=== PATIENT | male | born 1970 | race Caucasian/White ===

== ENCOUNTER 2016-12-17 03:48 | Emergency (ER) | payer MEDICAID ==
[~2016-12-17] VITALS: Ht 157.5 cm; Wt 72.6 kg
[~2016-12-17 03:48] MED LIST: IBUP-2213 PO; INSU100S45 SUBQ; LANTUS SUBQ; METF500T PO; METH500T14 PO; RANI-287 PO
[2016-12-17 03:51] VITALS: BP 138/85
--- NOTE | 2016-12-17 04:08 | NUR ---
PATIENT BEING EVALUATED BY DR. TEMPLE.
--- NOTE | 2016-12-17 04:08 | NUR ---
PATIENT AMBULATED TO ER BED7.
[2016-12-17] MEDS ORDERED: KETOROLAC 60 MG/2 ML VIAL IM ONE (04:10)
--- NOTE | 2016-12-17 04:20 | NUR ---
PT C/O LOW BACK PAIN, RADIATING TO HIS LEFT GROIN AND LEG, FOR 5 DAYS NOW
[2016-12-17 05:04] VITALS: BP 129/81
--- NOTE | 2016-12-17 05:05 | NUR ---
Patient discharged with v/s stable. Written and verbal after care instructions given and explained. Patient alert, oriented and verbalized understanding of instructions. Ambulatory with steady gait. All questions addressed prior to discharge. ID band removed. Patient advised to follow up with PMD. Rx of MOTRIN 800MG PO given. Patient educated on indication of medication including possible reaction and side effects. Opportunity to ask questions provided and answered.
== END 2016-12-17 05:05 | disposition home or self-care (01) ==
LOC: MED 03:48
DX: M54.42 Lumbago with sciatica, left side (principal); M54.41 Lumbago with sciatica, right side; R03.0 Elevated blood-pressure reading, without diagnosis of hypertension; E11.9 Type 2 diabetes mellitus without complications; Z79.4 Long term (current) use of insulin
CPT/HCPCS: 96372; 99283; J1885

== ENCOUNTER 2017-01-03 10:11 | Emergency (ER) | payer MEDICAID ==
[~2017-01-03] VITALS: Ht 154.9 cm; Wt 70.0 kg
[2017-01-03 10:16] VITALS: BP 132/85
[2017-01-03 11:04] VITALS: BP 128/82
== END 2017-01-03 11:09 | disposition home or self-care (01) ==
LOC: MED 10:11
DX: B34.9 Viral infection, unspecified (principal); E11.65 Type 2 diabetes mellitus with hyperglycemia; Z71.6 Tobacco abuse counseling
CPT/HCPCS: 82948; 99283

== ENCOUNTER 2017-01-14 13:12 | Emergency (ER) | payer SELFPAY ==
[~2017-01-14 13:12] MED LIST changes: -METH500T14 PO; -RANI-287 PO
--- NOTE | 2017-01-14 14:11 | NUR ---
PATIENT LEFT WITHOUT BEING SEEN BY DR. OVERTON. NO FURTHER CARE PROVIDED FOR PATIENT.
== END 2017-01-14 14:11 | disposition left against medical advice (07) ==
LOC: MED 13:12
DX: R51 Headache (principal); Z53.21 Procedure and treatment not carried out due to patient leaving prior to being seen by health care provider

== ENCOUNTER 2017-06-12 16:05 | Emergency (ER) | payer MEDICAID ==
[~2017-06-12] VITALS: Ht 162.6 cm; Wt 69.4 kg
[2017-06-12 16:44] VITALS: BP 146/96
--- NOTE | 2017-06-12 17:03 | NUR ---
PATIENT BIB SELF WITH C/O LT PIOSTERIOR NECK RADIATING TO LEFT SHOUDLER PAIN AND LEFT ARM X 1 WK; PT DENIES ANY CP OR RECENT INJURY/FALLS; ALSO C/O LBP;PT WAS DX W/ UTI LAST WEEK;HX OF DM . DENIES N/V/D; SKIN IS PINK/WARM/DRY; AAOX4 WITH EVEN AND STEADY GAIT; LUNGS CLEAR BL; HR EVEN AND REGULAR; PT DENIES ANY FEVER, CP, SOB, OR COUGH AT THIS TIME; PATIENT STATES PAIN OF 8/10 AT THIS TIME;PATIENT POSITIONED FOR COMFORT; HOB ELEVATED; BEDRAILS UP X2; BED DOWN. ER MD MADE AWARE OF PT STATUS.
--- NOTE | 2017-06-12 17:27 | NUR ---
DR KNOTT AT BEDSIDE.
[2017-06-12] MEDS ORDERED: KETOROLAC 60 MG/2 ML VIAL IM ONE (17:30)
[2017-06-12 18:58] VITALS: BP 122/68
--- NOTE | 2017-06-12 18:58 | NUR ---
Patient discharged with v/s stable. Written and verbal after care instructions given and explained. Patient alert, oriented and verbalized understanding of instructions. Ambulatory with steady gait. All questions addressed prior to discharge. ID band removed. Patient advised to follow up with PMD. Rx of MOTRIN AND NORCO; given. Patient educated on indication of medication including possible reaction and side effects. Opportunity to ask questions provided and answered.
== END 2017-06-12 18:58 | disposition home or self-care (01) ==
LOC: MED 16:05
DX: R51 Headache (principal); M54.2 Cervicalgia; M25.512 Pain in left shoulder; E11.9 Type 2 diabetes mellitus without complications; F17.210 Nicotine dependence, cigarettes, uncomplicated; Z79.4 Long term (current) use of insulin; Z79.899 Other long term (current) drug therapy
CPT/HCPCS: 81002; 82948; 96372; 99283; J1885

== ENCOUNTER 2017-12-01 23:46 | Emergency (ER) | payer MEDICAID ==
[~2017-12-01] VITALS: Ht 157.5 cm; Wt 70.3 kg
[2017-12-01 23:48] VITALS: BP 150/100
--- NOTE | 2017-12-01 23:54 | NUR ---
TO BED # 2 AMBULATORY
--- NOTE | 2017-12-02 | NUR ---
47Y/M PT. PRESENST TO ED WITH C/O ABDOMINAL PAIN WITH N/V X 1 DAY. HX. DM. AAO X4, AMBULATORY WITH STEADY GAIT. RESPIRATIONS RA, EVEN AND UNLABORED. ABDOMEN SOFT, NON TENDER. ACTIVE BS X4, C/O UPPER ABDOMINAL PAIN 03/08. VSS, ER MADE AWARE OF PT. STATUS.
--- NOTE | 2017-12-02 00:12 | NUR ---
Dr. Cortez evaluating patient at bedside.
[2017-12-02] MEDS ORDERED: NACL 0.9% 1,000 ML IV SCH (00:17)
[2017-12-02] MEDS ORDERED: ONDANSETRON 4 MG/2 ML VIAL IVP ONE (00:20)
[2017-12-02] MEDS ORDERED: MORPHINE SULFATE 2 MG/ML SYR IVP ONE (00:20)
[2017-12-02] MEDS ORDERED: MORPHINE SULFATE 4 MG/ML SYR ONE (00:37)
[2017-12-02] MEDS ORDERED: INSULIN REGULAR, HUMAN 100 UNIT/ML VIAL SUBQ ONE (00:45)
--- NOTE | 2017-12-02 00:47 | NUR ---
PT TAKEN TO CT
[2017-12-02 01:01] LABS: BASOPHILS # (AUTO) 0.1 K/uL (0.00-0.22); BASOPHILS % (AUTO) 1.4 % (0.0-2.0); EOSINOPHILS # (AUTO) 0.1 K/uL (0-0.4); EOSINOPHILS % (AUTO) 1.7 % (0.0-4.0); HEMATOCRIT 45.2 % (36-52); HEMOGLOBIN 15.1 g/dL (12.0-18.0); LYMPHOCYTES # (AUTO) 2.6 K/uL (2.0-11.5); LYMPHOCYTES % (AUTO) 37.4 % (20.5-51.1); MEAN CORPUSCULAR HEMOGLOBIN 29 pg (27-31); MEAN CORPUSCULAR HGB CONC 33 g/dL (33-37); MEAN CORPUSCULAR VOLUME 85.9 fL (80-94); MONOCYTES # (AUTO) 0.6 K/uL (0.8-1.0); MONOCYTES % (AUTO) 7.9 % (1.7-9.3); NEUTROPHILS # (AUTO) 3.6 K/uL (1.8-7.7); NEUTROPHILS % (AUTO) 51.6 % (42.2-75.2); PLATELET COUNT (AUTO) 242 K/uL (140-450); RED BLOOD CELL COUNT(AUTO) 5.26 MIL/uL (4.20-6.10); RED CELL DISTRIBUTION WIDTH 12.7 % (11.6-13.7); WHITE BLOOD COUNT (AUTO) 7.1 K/uL (4.8-10.8)
[2017-12-02 01:04] LABS: APPEARANCE,URINE CLEAR (CLEAR); BILIRUBIN,URINE NEGATIVE (NEGATIVE); BLOOD, URINE NEGATIVE (NEGATIVE); COLOR,URINE YELLOW (YELLOW); LEUKOCYTE ESTERASE ,URINE NEGATIVE (NEGATIVE); NITRITE, URINE NEGATIVE (NEGATIVE); UGLUCOSE 3+ (NEGATIVE)
[2017-12-02 01:18] LABS: ANION GAP 12.9 (8-16); CARBON DIOXIDE 26.7 mmol/L (21-32); CREATININE 0.9 mg/dL (0.7-1.3); POTASSIUM 3.6 mmol/L (3.5-5.1)
[2017-12-02 01:23] LABS: RBC,URINE 0-5 (RARE) /HPF (0-5); WBC,URINE 0-5 (RARE) /HPF (0-5)
[2017-12-02 01:24] LABS: ALBUMIN 3.5 g/dL (3.4-5.0); TOTAL BILIRUBIN 0.4 mg/dL (0.0-1.0)
--- NOTE | 2017-12-02 02:00 | NUR ---
Patient appears to be resting comfortably in bed. Vital Signs within normal limits. Respirations even and unlabored.
[2017-12-02 03:05] VITALS: BP 122/73
--- NOTE | 2017-12-02 03:05 | NUR ---
Patient discharged with v/s stable. Written and verbal after care instructions given and explained. Patient alert, oriented and verbalized understanding of instructions. Ambulatory with steady gait. All questions addressed prior to discharge. ID band removed. Patient advised to follow up with PMD. Rx of Motrin, Tylenol, and Reglan given. Patient educated on indication of medication including possible reaction and side effects. Opportunity to ask questions provided and answered.
== END 2017-12-02 03:05 | disposition home or self-care (01) ==
LOC: MED 23:46
DX: R10.13 Epigastric pain (principal); R74.8 Abnormal levels of other serum enzymes; E11.9 Type 2 diabetes mellitus without complications; Z79.4 Long term (current) use of insulin; Z79.899 Other long term (current) drug therapy
CPT/HCPCS: 36415; 74176; 80053; 81001; 82948; 83690; 85025; 96361; 96374; 96375; 99285; J1815; J2270; J2405; J7030

== ENCOUNTER 2017-12-26 23:25 | Emergency (ER) | payer MEDICAID ==
[~2017-12-26] VITALS: Ht 157.5 cm; Wt 70.3 kg
[2017-12-26 23:28] VITALS: BP 150/85
--- NOTE | 2017-12-27 01:30 | NUR ---
PATIENT CALLED TO PUT ON BED NO REPLY, TO CALL BACK AGAIN.
--- NOTE | 2017-12-27 01:35 | NUR ---
CALLED FOR THE SECOND TIME NO RESPONSE.
--- NOTE | 2017-12-27 01:38 | NUR ---
CALLED FOR THR THIRD TIME NO RESPONSE. PATIENT LEFT WITHOUT BEING SEEN BY DR. ORDONEZ. NO FURTHER CARE PROVIDED FOR PATIENT.
== END 2017-12-27 01:38 | disposition left against medical advice (07) ==
LOC: MED 23:25
DX: M54.9 Dorsalgia, unspecified (principal); Z53.21 Procedure and treatment not carried out due to patient leaving prior to being seen by health care provider

== ENCOUNTER 2018-02-12 01:47 | Emergency (ER) | payer MEDICAID, OTHER ==
[~2018-02-12] VITALS: Ht 157.5 cm; Wt 68.0 kg
[2018-02-12 01:49] VITALS: BP 143/100
[2018-02-12] MEDS ORDERED: NACL 0.9% 2,000 ML IV ONE (02:15)
[2018-02-12] MEDS ORDERED: LORazepam 1 MG TAB PO ONE (02:15)
[2018-02-12 02:42] LABS: ALBUMIN 3.7 g/dL (3.4-5.0); ANION GAP 15.1 (8-16); CREATININE 1.1 mg/dL (0.7-1.3); POTASSIUM 4.1 mmol/L (3.5-5.1); TOTAL BILIRUBIN 0.4 mg/dL (0.0-1.0)
[2018-02-12 03:53] VITALS: BP 141/75
== END 2018-02-12 03:50 | disposition home or self-care (01) ==
LOC: MED 01:47
DX: E11.65 Type 2 diabetes mellitus with hyperglycemia (principal); Z79.4 Long term (current) use of insulin
CPT/HCPCS: 36415; 80053; 82948; 83690; 96360; 99284

== ENCOUNTER 2019-01-27 23:15 | Emergency (ER) | payer MEDICAID, OTHER ==
[~2019-01-27] VITALS: Ht 157.5 cm; Wt 72.6 kg
[2019-01-27 23:30] VITALS: BP 130/90
--- NOTE | 2019-01-27 23:33 | NUR ---
TO LOBBY A/W BED AMBULATORY
--- NOTE | 2019-01-28 01:09 | NUR ---
PATIENT LEFT WITHOUT BEING SEEN BY DR. ROBBINS. NO FURTHER CARE PROVIDED FOR PATIENT.
--- NOTE | 2019-01-28 01:09 | NUR ---
CALLED FOR PT IN THE LOBBY AND OUTSIDE, NO RESPONSE.
--- NOTE | 2019-01-28 01:19 | NUR ---
PT CALLED, NO ANSWER IN ER LOBBY.
== END 2019-01-28 01:09 | disposition left against medical advice (07) ==
LOC: MED 23:15
DX: M54.6 Pain in thoracic spine (principal); J02.9 Acute pharyngitis, unspecified; Z53.21 Procedure and treatment not carried out due to patient leaving prior to being seen by health care provider

== ENCOUNTER 2019-02-06 02:10 | Emergency (ER) | payer OTHER ==
[~2019-02-06] VITALS: Ht 157.5 cm; Wt 74.8 kg
[2019-02-06 02:18] VITALS: BP 151/109
--- NOTE | 2019-02-06 02:21 | NUR ---
PT AMBULATED TO BED 1. PROVIDING URINE.
--- NOTE | 2019-02-06 02:40 | NUR ---
PT BIB C/O COUGH X1 WEEK AND LLQ ABD PAIN THAT RADIATES TO TESTICLES X1 DAY. PT STATES DYSURIA AND 8/10 PAIN. +TENDERNESS W/ PALP; BOWEL SOUNDS ACTIVE THROUGH OUT. PT ACTING APPROPRIATLY, SPEAKING IN CLEAR AND COMPLETE SENTENCES. BREATHING EQUAL AND UNLABORED. PT IN BED, SAFETY PRECAUTIONS IN PLACE. PENDING KM ROACH. PMH: JEFFREY
[2019-02-06] MEDS ORDERED: NACL 0.9% 1,000 ML IV SCH (02:51)
[2019-02-06] MEDS ORDERED: KETOROLAC 30 MG/ML VIAL IVP ONE (02:55)
--- NOTE | 2019-02-06 03:00 | NUR ---
BLOOD DRAWN AT IV START BY RN AND SENT W/ RAY, TECH TO LAB --IV: L AC 20 G, W/ SALINE LOCK. FLUSHED WELL W/O RESISTANCE. NO REDNESS OR SWELLING TO SITE. TRANSPARENT DRESSING APPLIED.
[2019-02-06 03:05] LABS: APPEARANCE,URINE CLEAR (CLEAR); BILIRUBIN,URINE NEGATIVE (NEGATIVE); BLOOD, URINE NEGATIVE (NEGATIVE); COLOR,URINE YELLOW (YELLOW); LEUKOCYTE ESTERASE ,URINE NEGATIVE (NEGATIVE); NITRITE, URINE NEGATIVE (NEGATIVE); UGLUCOSE 2+ (NEGATIVE)
[2019-02-06 03:05] LABS: BASOPHILS # (AUTO) 0.1 K/uL (0.00-0.22); BASOPHILS % (AUTO) 0.9 % (0.0-2.0); EOSINOPHILS # (AUTO) 0.3 K/uL (0-0.4); EOSINOPHILS % (AUTO) 2.8 % (0.0-4.0); HEMATOCRIT 40.6 % (36-52); HEMOGLOBIN 13.8 g/dL (12.0-18.0); LYMPHOCYTES # (AUTO) 3.5 K/uL (2.0-11.5); LYMPHOCYTES % (AUTO) 37.7 % (20.5-51.1); MEAN CORPUSCULAR HEMOGLOBIN 29 pg (27-31); MEAN CORPUSCULAR HGB CONC 34 g/dL (33-37); MEAN CORPUSCULAR VOLUME 84.5 fL (80-94); MONOCYTES # (AUTO) 0.8 K/uL (0.8-1.0); MONOCYTES % (AUTO) 8.9 % (1.7-9.3); NEUTROPHILS # (AUTO) 4.7 K/uL (1.8-7.7); NEUTROPHILS % (AUTO) 49.7 % (42.2-75.2); PLATELET COUNT (AUTO) 309 K/uL (140-450); RED BLOOD CELL COUNT(AUTO) 4.81 MIL/uL (4.20-6.10); RED CELL DISTRIBUTION WIDTH 12.8 % (11.6-13.7); WHITE BLOOD COUNT (AUTO) 9.4 K/uL (4.8-10.8)
[2019-02-06 03:19] LABS: ALBUMIN 3.2 g/dL (3.4-5.0); ANION GAP 15.8 (8-16); CREATININE 0.7 mg/dL (0.7-1.3); POTASSIUM 3.8 mmol/L (3.5-5.1); TOTAL BILIRUBIN 0.5 mg/dL (0.0-1.0)
[2019-02-06 03:19] LABS: RBC,URINE 0-5 /HPF (0-5)
[2019-02-06 03:20] LABS: WBC,URINE 0-5 /HPF (0-5)
--- NOTE | 2019-02-06 03:27 | NUR ---
PT TO CT VIA WHEELCHAIR BY TECH. GUDELIA
--- NOTE | 2019-02-06 04:14 | NUR ---
PT AMBULATED W/ STEADY GAIT TO BR.
--- NOTE | 2019-02-06 04:35 | NUR ---
DR. ROBBINS AT BEDSIDE.
[2019-02-06] MEDS ORDERED: MORPHINE SULFATE 4 MG/ML SYR IVP ONE (04:40)
--- NOTE | 2019-02-06 05:30 | NUR ---
Patient discharged with v/s stable. Patient acting appropriatly, states he feels relief from pain and he is ready to go home; pain 0/10 at this time. Written and verbal after care instructions given and explained. Patient alert, oriented and verbalized understanding of instructions. Ambulatory with steady gait. All questions addressed prior to discharge. ID band removed. Patient advised to follow up with PMD. Rx of Cipro, Motrin, and Xenia given. Patient educated on indication of medication including possible reaction and side effects. Opportunity to ask questions provided and answered.
[2019-02-06 05:34] VITALS: BP 114/65
== END 2019-02-06 05:30 | disposition home or self-care (01) ==
LOC: MED 02:10
DX: N12 Tubulo-interstitial nephritis, not specified as acute or chronic (principal); R05 Cough; E11.9 Type 2 diabetes mellitus without complications; Z79.4 Long term (current) use of insulin; Z79.84 Long term (current) use of oral hypoglycemic drugs; Z98.890 Other specified postprocedural states
CPT/HCPCS: 36415; 74176; 80053; 81001; 83690; 85025; 96374; 96375; 99284; J1885; J2270; J7030

== ENCOUNTER 2019-04-03 07:44 | Emergency (ER) | payer OTHER ==
[~2019-04-03] VITALS: Ht 157.5 cm; Wt 79.1 kg
[2019-04-03 07:46] VITALS: BP 146/89
[2019-04-03] MEDS ORDERED: KETOROLAC 60 MG/2 ML VIAL IM ONE (08:20)
[2019-04-03 08:44] VITALS: BP 146/88
== END 2019-04-03 08:43 | disposition home or self-care (01) ==
LOC: MED 07:44
DX: R07.89 Other chest pain (principal); E11.9 Type 2 diabetes mellitus without complications; Z79.84 Long term (current) use of oral hypoglycemic drugs; Z79.4 Long term (current) use of insulin; Z98.890 Other specified postprocedural states; Z79.1 Long term (current) use of non-steroidal anti-inflammatories (NSAID)
CPT/HCPCS: 81002; 82948; 96372; 99283; J1885

== ENCOUNTER 2019-06-18 02:38 | Emergency (ER) | payer OTHER ==
[~2019-06-18] VITALS: Ht 157.5 cm; Wt 74.8 kg
[2019-06-18 02:46] VITALS: BP 144/88
[2019-06-18] MEDS: LORazepam 2 MG/ML VIAL IM ONE (03:36)
[2019-06-18 05:06] VITALS: BP 145/87
== END 2019-06-18 05:06 | disposition home or self-care (01) ==
LOC: MED 02:38
DX: F43.9 Reaction to severe stress, unspecified (principal); F41.9 Anxiety disorder, unspecified; I10 Essential (primary) hypertension; E11.9 Type 2 diabetes mellitus without complications; Z79.4 Long term (current) use of insulin; Z79.899 Other long term (current) drug therapy; Z79.1 Long term (current) use of non-steroidal anti-inflammatories (NSAID)
CPT/HCPCS: 70450; 93005; 96372; 99284; J2060

== ENCOUNTER 2019-09-05 23:41 | Emergency (ER) | payer OTHER ==
[~2019-09-05] VITALS: Ht 160 cm; Wt 81.2 kg
[2019-09-05 23:48] VITALS: BP 165/91
--- NOTE | 2019-09-05 23:57 | NUR ---
FLU SWAB COLLECTED.
--- NOTE | 2019-09-05 23:58 | NUR ---
PT AMBULATED TO ER BED 08
--- NOTE | 2019-09-06 00:12 | NUR ---
48 Y/O MALE PRESENTS ED, C/O FLU LIKE SYMPTOMS. PT STATES DRY COUGHING THAT STARTED SUNDAY. DENIES ANY CHEST PAIN. NO SOB/DIFFICULTY BREATHING NOTED. LUNG SOUNDS BILAT CLEAR. NO FEVER NOTED. PT C/O NAUSEA, NO VOMITING. C/O DIARRHEA, 3 EPISODES THE PAST 2 DAYS. NO MEDICATIONS TAKEN PRIOR COMING TO ED. PT VSS. ERMD AWARE. WILL CONTINUE TO MONITOR.
[2019-09-06] MEDS ORDERED: ACETAMIN/CODEINE 120/12MG-5ML 5 ML UDC PO ONE (01:00)
[2019-09-06] MEDS ORDERED: KETOROLAC 30 MG/ML VIAL IM ONE (01:00)
--- NOTE | 2019-09-06 01:07 | NUR ---
XRAY AT BEDSIDE
[2019-09-06 02:04] VITALS: BP 144/78
--- NOTE | 2019-09-06 02:04 | NUR ---
PT DISCHARGED WITH PAPERWORK. EDUCATED PT REGARDING MEDICATIONS AND D/C INSTRUCTIONS. PT VERBALIZED UNDERSTANDING. TOLD PT TO FOLLOW UP WITH PCP AND WHEN TO RETURN TO ED. PT STABLE CONDITION. ALL QUESTIONS ANSWERED.
--- NOTE | 2019-09-06 13:25 | NUR ---
CALL PT REGARDING CHEST XR. PT STS " I DO NOT FEEL BETTER. I'M GOING TO COME BACK TO ER." ER MD DR TEMPLE NOTIFED
== END 2019-09-06 02:04 | disposition home or self-care (01) ==
LOC: MED 23:41
DX: J20.9 Acute bronchitis, unspecified (principal); E11.9 Type 2 diabetes mellitus without complications; Z98.890 Other specified postprocedural states; Z79.4 Long term (current) use of insulin; Z79.899 Other long term (current) drug therapy
CPT/HCPCS: 71045; 87804; 96372; 99284; J1885; Q0092

== ENCOUNTER 2023-02-27 06:45 | Emergency (ER) | payer OTHER ==
[~2023-02-27] VITALS: Ht 157.5 cm; Wt 78.0 kg
[~2023-02-27 06:45] MED LIST changes: +METF-346 PO; -METF500T PO
[2023-02-27 07:01] VITALS: BP 167/94; PULSE 72; RESP 18; TEMP 97
--- NOTE | 2023-02-27 07:20 | NUR ---
Report recieved from MICHI Jacques for transfer of care.
--- NOTE | 2023-02-27 07:22 | NUR ---
52 YO M BIB SELF C/O LEFT FLANK PAIN, BURNING WHEN URINATING, AND HEADACHE X 2 DAYS. PT STATES PAIN /. DENIES N/V/D. BED IN LOWEST POSITION. SIDE RAILS UP X2. CALL LIGHT WITHIN REACH. [facility] MED HX: DM2, HTN, HIGH CHOLESTEROL
--- NOTE | 2023-02-27 07:22 | NUR ---
Pt report given to MICHI TREJO. Transfer of care at this time.
[2023-02-27] MEDS ORDERED: NACL 0.9% 1,000 ML IV ONE (07:35)
[2023-02-27 08:07] LABS: BASOPHILS # (AUTO) 0.1 K/uL (0.00-0.22); BASOPHILS % (AUTO) 1.3 % (0.0-2.0); EOSINOPHILS # (AUTO) 0.2 K/uL (0-0.4); EOSINOPHILS % (AUTO) 1.7 % (0.0-4.0); HEMATOCRIT 35.6 % (36-52); HEMOGLOBIN 12.3 g/dL (12.0-18.0); LYMPHOCYTES % (AUTO) 33.1 % (20.5-51.1); MEAN CORPUSCULAR HEMOGLOBIN 29 pg (27-31); MEAN CORPUSCULAR HGB CONC 35 g/dL (33-37); MEAN CORPUSCULAR VOLUME 82.6 fL (80-94); MONOCYTES # (AUTO) 0.7 K/uL (0.8-1.0); MONOCYTES % (AUTO) 7.8 % (1.7-9.3); NEUTROPHILS # (AUTO) 5.1 K/uL (1.8-7.7); NEUTROPHILS % (AUTO) 56.1 % (42.2-75.2); PLATELET COUNT (AUTO) 316 K/uL (140-450); WHITE BLOOD COUNT (AUTO) 9.2 K/uL (4.8-10.8)
[2023-02-27 08:28] LABS: APPEARANCE,URINE CLEAR (CLEAR); BILIRUBIN,URINE NEGATIVE (NEGATIVE); BLOOD, URINE 1+ (NEGATIVE); COLOR,URINE YELLOW (YELLOW); LEUKOCYTE ESTERASE ,URINE NEGATIVE (NEGATIVE); NITRITE, URINE NEGATIVE (NEGATIVE); UGLUCOSE 3+ (NEGATIVE)
[2023-02-27 09:32] LABS: ALBUMIN 1.8 g/dL (3.4-5.0); ANION GAP 13.6 (8-16); CARBON DIOXIDE 23.9 mmol/L (21-32); CREATININE 1.7 mg/dL (0.6-1.3); POTASSIUM 3.5 mmol/L (3.5-5.1); TOTAL BILIRUBIN 0.3 mg/dL (0.0-1.0)
--- NOTE | 2023-02-27 10:11 | NUR ---
Patient was taken to CT via rlahaina.
--- NOTE | 2023-02-27 10:21 | NUR ---
Patient returned from CT.
[2023-02-27 10:33] VITALS: TEMP 96.7
[2023-02-27] MEDS ORDERED: ONDANSETRON 4 MG/2 ML VIAL IVP ONE (10:45)
[2023-02-27] MEDS ORDERED: MORPHINE SULFATE 2 MG/ML SYR IVP ONE (10:45)
--- NOTE | 2023-02-27 11:58 | NUR ---
Patient's pain is decreased to 0/10. Pain medication given by RN was effective in pain management.
[2023-02-27] MEDS ORDERED: CEPH-588 PO (12:22)
[2023-02-27] MEDS ORDERED: ACET-10509 PO (12:22)
[2023-02-27 12:32] VITALS: BP 174/80; PULSE 74; RESP 17; O2SAT 98
--- NOTE | 2023-02-27 12:32 | NUR ---
Patient discharged with v/s stable. Written and verbal after care instructions given and explained. Patient alert, oriented and verbalized understanding of instructions. Ambulatory with steady gait. All questions addressed prior to discharge. ID band removed. Patient advised to follow up with PMD. Rx of KEFLEX, TYLENOL given. Patient educated on indication of medication including possible reaction and side effects. Opportunity to ask questions provided and answered.
== END 2023-02-27 12:32 | disposition home or self-care (01) ==
LOC: MED 06:45
DX: N20.0 Calculus of kidney (principal); K57.30 Diverticulosis of large intestine without perforation or abscess without bleeding; N17.9 Acute kidney failure, unspecified; E11.9 Type 2 diabetes mellitus without complications; I10 Essential (primary) hypertension; Z98.890 Other specified postprocedural states; Z79.899 Other long term (current) drug therapy; Z79.4 Long term (current) use of insulin; Z79.1 Long term (current) use of non-steroidal anti-inflammatories (NSAID); Z79.2 Long term (current) use of antibiotics
CPT/HCPCS: 36415; 74176; 80053; 81001; 85025; 87086; 96361; 96374; 96375; 99285; J2270; J2405; J7030